=== PATIENT | male | born 1985 | race Hispanic/Latino ===

== ENCOUNTER → 2022-09-19 | Day surgery (SDC) | payer OTHER ==
[~2022-09-19] MED LIST: HYOSCYAMINE SULFATE 0.5 MG/ML INJ ONE; LIDOCAINE HCL 2% LOCAL INJ 5 ML SDV VIAL INJ ONE; POVIDONE IODINE 0.05% 0.05 % ML PO ONE; PROPOFOL IV EMULSION 10 MG/ML 20 ML VIAL ONE
[2022-09-19 15:39] VITALS: BP 122/82
== END | disposition home or self-care (01) ==
LOC: EDBD 10:30 → OR 11:55
PROVIDERS: ATTEND Internal Medicine Gastroenterology
DX: K52.9 Noninfective gastroenteritis and colitis, unspecified (principal); D12.5 Benign neoplasm of sigmoid colon; K62.89 Other specified diseases of anus and rectum; K64.8 Other hemorrhoids; Z71.3 Dietary counseling and surveillance; G47.33 Obstructive sleep apnea (adult) (pediatric); Z01.810 Encounter for preprocedural cardiovascular examination; Z68.27 Body mass index [BMI] 27.0-27.9, adult; Z86.16 Personal history of COVID-19
CPT/HCPCS: 45380; 83630; 83993; 86140; 87045; 87177; 87324; 87328; 87449; 88305; 93005; J1980; J2001; J2704; 45378